=== PATIENT | male | born 2000 ===

== ENCOUNTER 2021-10-11 16:26 | Emergency (ER) | payer MEDICAID ==
[~2021-10-11] VITALS: Ht 177.8 cm; Wt 76.7 kg
[2021-10-11 16:50] VITALS: BP 152/89
== END 2021-10-11 21:21 | disposition left against medical advice (07) ==
LOC: ER 16:28
DX: G43.909 Migraine, unspecified, not intractable, without status migrainosus (principal); Z53.21 Procedure and treatment not carried out due to patient leaving prior to being seen by health care provider